=== PATIENT | female | born 1985 | race Caucasian/White ===

== ENCOUNTER 2022-11-25 11:56 | Emergency (ER) | payer MEDICAID ==
[~2022-11-25] VITALS: Ht 162.6 cm; Wt 80.0 kg
[2022-11-25 12:10] VITALS: BP 165/88
== END 2022-11-25 14:04 | disposition left against medical advice (07) ==
LOC: ER 11:56
DX: F41.9 Anxiety disorder, unspecified (principal); Z53.21 Procedure and treatment not carried out due to patient leaving prior to being seen by health care provider